=== PATIENT | male | born 1970 | race Caucasian/White ===

== ENCOUNTER → 2018-11-03 | Outpatient (CLI) | payer BC ==
[~2018-11-03] MED LIST: ASPIRIN EC81 M1; CYCLOBENZAPRINE10 MG PO; MULTIVITAMINS PO; NABUMETONE 500500 M1 PO; NUCYNTA50 MG PO; PERCOCET PO; RELAFEN750 MG PO; SIMVASTATIN40 MG PO
== END ==
LOC: M.MRI 10-26 09:38
DX: M50.223 Other cervical disc displacement at C6-C7 level (principal); M48.02 Spinal stenosis, cervical region; M25.78 Osteophyte, vertebrae; R20.0 Anesthesia of skin; R27.0 Ataxia, unspecified

== ENCOUNTER → 2018-12-04 | Outpatient (CLI) | payer BC ==
[~2018-12-04] MED LIST changes: +ALIGN4 MG PO; +BENTYL 20 MG TA20 M1 PO; +CARAFATE1 GM/10 ML PO; +DEXILANT60 MG PO; +LUNESTA3 MG PO; +PYRIDIUM100 M1 PO; +ZANTAC 7575 MG PO
== END ==
LOC: M.ULTRA 09:00
DX: R10.31 Right lower quadrant pain (principal); Z87.19 Personal history of other diseases of the digestive system

== ENCOUNTER 2018-12-07 16:41 | Emergency (ER) | payer BC ==
[~2018-12-07] VITALS: Ht 172.7 cm; Wt 72.6 kg
[~2018-12-07 16:41] MED LIST changes: -ALIGN4 MG PO; -BENTYL 20 MG TA20 M1 PO; -CARAFATE1 GM/10 ML PO; -DEXILANT60 MG PO; -LUNESTA3 MG PO; -PYRIDIUM100 M1 PO; -ZANTAC 7575 MG PO
[2018-12-07] MEDS ORDERED: LUNESTA3 MG PO (17:01)
[2018-12-07] MEDS ORDERED: ALIGN4 MG PO (17:01)
[2018-12-07] MEDS ORDERED: BENTYL 20 MG TA20 M1 PO (17:01)
[2018-12-07] MEDS ORDERED: DEXILANT60 MG PO (17:02)
[2018-12-07] MEDS ORDERED: ZANTAC 7575 MG PO (17:02)
[2018-12-07 18:03] LABS: ABSOLUTE LYMPHOCYTES 1.9 thou/uL (0.8-5.3); ABSOLUTE MONOCYTES 0.5 thou/uL (0.0-1.2); ABSOLUTE NEUTROPHILS 4.1 thou/uL (1.6-8.1); BASOPHILS 0.6 %; EOSINOPHILS 0.4 %; HEMATOCRIT 42.7 % (42.0-52.0); HEMOGLOBIN 14.5 gm/dL (14.0-18.0); LYMPHOCYTES 28.2 %; MCH 30.3 pg (26.0-34.0); MCV 89.2 fL (80.0-100.0); MONOCYTES 8.3 %; MPV 8.1 fl. (7.2-11.1); NUCLEATED RBCS 0 /100WBC; PLATELET COUNT* 297 thou/uL (150-400); POLYS 62.5 %; RBC 4.79 mil/uL (4.50-6.00); RDW-CV 12.4 % (10.5-14.5); WBC 6.6 thou/uL (4.0-11.0)
[2018-12-07 18:21] LABS: ANION GAP 11 mmol/L (7-16); BUN 13 mg/dL (7-18); CALCIUM 8.9 mg/dL (8.5-10.1); CHLORIDE 105 mmol/L (98-107); CO2 26 mmol/L (21-32); CREATININE 1.5 mg/dL (0.6-1.3); GLUCOSE 87 mg/dL (70-99); POTASSIUM 3.7 mmol/L (3.5-5.1); SODIUM 142 mmol/L (136-145); TROPONIN-I LEVEL <0.06 ng/mL (<0.06)
[2018-12-07 18:26] LABS: ALBUMIN 3.9 g/dL (3.4-5.0); ALKALINE PHOSPHATASE 43 U/L (46-116); SGOT 20 U/L (15-37); SGPT 43 U/L (30-65); TOTAL BILIRUBIN 0.4 mg/dL (<0.1-1.0); TOTAL PROTEIN 6.9 g/dL (6.4-8.2)
[2018-12-07] MEDS ORDERED: CARAFATE1 GM/10 ML PO (18:38)
[2018-12-07 19:03] LABS: URINE BILIRUBIN NEGATIVE (Negative); URINE BLOOD NEGATIVE (Negative); URINE CLARITY CLEAR; URINE COLOR YELLOW; URINE GLUCOSE-RANDOM NEGATIVE (Negative); URINE LEUKOCYTES-REFLEX NEGATIVE (Negative); URINE NITRITE-REFLEX NEGATIVE (Negative); URINE PROTEIN NEGATIVE (Negative); URINE UROBILINOGEN 0.2 E.U./dl (0.2-1.0)
[2018-12-07 19:04] LABS: URINE KETONES 3+ (Negative)
[2018-12-07] MEDS ORDERED: PYRIDIUM100 M1 PO (19:27)
[2018-12-07 19:33] VITALS: BP 139/82
--- NOTE | 2018-12-08 10:41 | EKG ---
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 12/08/18 1041 [id number] 1737 Amadeo Colindres MD, FACC /EPI
== END 2018-12-07 19:33 | disposition home or self-care (01) ==
LOC: M.ERS 16:41
PROVIDERS: Nurse Practitioner Family
DX: K21.9 Gastro-esophageal reflux disease without esophagitis (principal); E86.0 Dehydration; Z88.8 Allergy status to other drugs, medicaments and biological substances; Z88.6 Allergy status to analgesic agent

== ENCOUNTER → 2020-06-26 | Outpatient (CLI) | payer OTHER ==
[~2020-06-26] MED LIST changes: +ALIGN4 MG PO; +BENTYL 20 MG TA20 M1 PO; +CARAFATE1 GM/10 ML PO; +DEXILANT60 MG PO; +LUNESTA3 MG PO; +PYRIDIUM100 M1 PO; +ZANTAC 7575 MG PO
== END ==
LOC: M.ULTRA 09:29
PROVIDERS: ATTEND Family Medicine
DX: N50.89 Other specified disorders of the male genital organs (principal); N50.812 Left testicular pain

== ENCOUNTER → 2021-03-25 | Outpatient (CLI) | payer OTHER | LOC: M.LAB 15:00 | PROVIDERS: ATTEND Family Medicine | DX: G62.9 Polyneuropathy, unspecified (principal) ==